=== PATIENT | female | born 1985 | race Caucasian/White ===

== ENCOUNTER 2018-04-17 01:14 | Emergency (ER) | payer OTHER ==
[~2018-04-17] VITALS: Ht 165.1 cm; Wt 69.0 kg
[~2018-04-17 01:14] MED LIST: ACETAMINOPHEN-1 EAC1 PO; CARAFATE1 GM/10 ML PO; CYCLOBENZAPRINE10 MG; DICLOFENAC SODI75 MG; DICLOFENAC SODI75 MG PO; FLEXERIL PO; LORTABELXR PO; MAXALT10 MG; NAPROSYN500 MG PO; NORCO 5-325 TA1 EACH PO; PAXIL10 MG PO; PREVACID15 MG PO; PROPANEDIOL100 ML; PROPRANOLOL 8080 MG PO; SILVADENE20 GM TP; SKELAXIN 800 M800 M1; TOPAMAX 25 MG T25 M1 PO; TRAMADOL 50 MG50 MG; VALIUM5 MG; ZANAFLEX4 MG PO; ZOFRAN ODT4 MG PO; ZOFRAN ODT4 MG SUBLING; ZOFRAN4 MG PO; ZYPREXA2.5 MG
[2018-04-17] MEDS ORDERED: TOPAMAX 100 MG100 MG (01:24)
[2018-04-17 01:46] LABS: URINE BILIRUBIN NEGATIVE (Negative); URINE BLOOD NEGATIVE (Negative); URINE CLARITY CLEAR; URINE COLOR YELLOW; URINE GLUCOSE-RANDOM NEGATIVE (Negative); URINE KETONES NEGATIVE (Negative); URINE LEUKOCYTES-REFLEX NEGATIVE (Negative); URINE NITRITE-REFLEX NEGATIVE (Negative); URINE PROTEIN NEGATIVE (Negative); URINE SPECIFIC GRAVITY 1.015 (1.005-1.030); URINE UROBILINOGEN 0.2 E.U./dl (0.2-1.0)
[2018-04-17] MEDS ORDERED: IBUPROFEN 800800 M1 PO (02:40)
[2018-04-17] MEDS ORDERED: HYDROCODONE-AP1 EAC6 PO (02:40)
[2018-04-17] MEDS ORDERED: FLEXERIL PO (02:40)
[2018-04-17 02:50] VITALS: BP 120/60
== END 2018-04-17 02:50 | disposition home or self-care (01) ==
LOC: M.ERS 01:14
PROVIDERS: Emergency Medicine Emergency Medical Services
DX: M54.5 Low back pain (principal); M79.18 Myalgia, other site; F41.9 Anxiety disorder, unspecified; G43.909 Migraine, unspecified, not intractable, without status migrainosus; F17.210 Nicotine dependence, cigarettes, uncomplicated

== ENCOUNTER 2018-09-14 16:13 | Emergency (ER) | payer OTHER ==
[~2018-09-14] VITALS: Ht 165.1 cm; Wt 63.5 kg
[~2018-09-14 16:13] MED LIST changes: +HYDROCODONE-AP1 EAC6 PO; +IBUPROFEN 800800 M1 PO; +TOPAMAX 100 MG100 MG
[2018-09-14] MEDS ORDERED: NORCO 5-325 TA1 EACH PO (16:59)
[2018-09-14] MEDS ORDERED: PREDNISONE 10 M10 M1 PO (16:59)
[2018-09-14 17:00] VITALS: BP 120/82
== END 2018-09-14 17:17 | disposition home or self-care (01) ==
LOC: M.ERS 16:13
DX: M25.562 Pain in left knee (principal); R22.42 Localized swelling, mass and lump, left lower limb; F41.9 Anxiety disorder, unspecified; G43.909 Migraine, unspecified, not intractable, without status migrainosus; F17.210 Nicotine dependence, cigarettes, uncomplicated

== ENCOUNTER 2019-09-16 21:41 | Emergency (ER) | payer OTHER ==
[~2019-09-16] VITALS: Ht 167.6 cm; Wt 63.5 kg
[~2019-09-16 21:41] MED LIST changes: +PREDNISONE 10 M10 M1 PO
[2019-09-16 22:13] LABS: INFLUENZA A ANTIGEN Negative (Negative); INFLUENZA B ANTIGEN Negative (Negative)
[2019-09-16] MEDS ORDERED: PROAIR HFA8.5 GM INH (23:15)
[2019-09-16 23:30] VITALS: BP 110/68
--- NOTE | 2019-09-18 14:07 | EKG ---
[place] [address] ELECTROCARDIOGRAM REPORT Name: MÓNICA ADAMS Room: [facility]#: [id number] Admission: 09/16/19 Attend Phys: Discharge: 09/16/19 Date of : 89 Date of Service: 09/16/192147 Report #: [id number] THIS REPORT FOR: //name// [facility] ED Test Date: 2019-09-16 Test Time: 21:48:03 Pat Name: MÓNICA ADAMS Department: Room: Gender: [employer]: COSME : 1985 Requested By: Nohemy Heck Order Number: [id number] Bahman MD: Umair Rooney Measurements Intervals [place] Rate: 95 P: 65 AK: 142 QRS: 53 QRSD: 82 T: 21 QT: 341 QTc: 429 Interpretive Statements Sinus rhythm Borderline T wave abnormalities No previous ECG available for comparison Electronically Signed On 09-18-2019 14:06:09 CDT by Umair Rooney [email or web address] <ELECTRONICALLY SIGNED> By: Umair Rooney MD, MERGED WITH [facility] 09/18/19 [id number] 47 Umair Rooney MD, FACC /EPI
== END 2019-09-16 23:31 | disposition home or self-care (01) ==
LOC: M.ERS 21:41
PROVIDERS: Emergency Medicine
DX: J06.9 Acute upper respiratory infection, unspecified (principal); F41.9 Anxiety disorder, unspecified; G43.909 Migraine, unspecified, not intractable, without status migrainosus; F17.210 Nicotine dependence, cigarettes, uncomplicated

== ENCOUNTER 2019-12-22 22:43 | Emergency (ER) | payer OTHER ==
[~2019-12-22] VITALS: Ht 167.6 cm; Wt 63.0 kg
[~2019-12-22 22:43] MED LIST changes: +PROAIR HFA8.5 GM INH
[2019-12-22] MEDS ORDERED: HYDROCODON-ACE1 EAC8 PO (23:52)
[2019-12-23 00:04] VITALS: BP 115/57
== END 2019-12-23 00:05 | disposition home or self-care (01) ==
LOC: M.ERS 22:43
DX: M77.9 Enthesopathy, unspecified (principal); G43.909 Migraine, unspecified, not intractable, without status migrainosus; F41.9 Anxiety disorder, unspecified; F17.210 Nicotine dependence, cigarettes, uncomplicated